=== PATIENT | female | born 1955 | race Caucasian/White ===

== ENCOUNTER → 2019-03-30 | Outpatient (CLI) | payer MEDICARE ==
--- NOTE | 2019-03-31 09:15 | USB ---
Reason for exam: additional evaluation requested from abnormal screening. History: Patient is postmenopausal. Family history of breast cancer in mother at age 80. US Breast Workup Limited RT Right limited breast ultrasound including focal area of concern, retroareolar and axilla demonstrates a 0.5 x 0.6 x 0.6cm hypoechoic lesion at 1 o'clock. These results were verbally communicated with the patient and result sheet given to the patient on 03/30/19. ASSESSMENT: Suspicious, BI-RAD 4 RECOMMENDATION: Ultrasound core biopsy of the right breast. Called office with mammographic findings and has scheduled an appointment for the patient for 05/05/19 at 10:[address] Thurman. Biopsy scheduled for 04/28/19 at 12:20. PRELIMINARY REPORT CALLED AND FAXED TO DR. THURMAN ON 03/31/19.
== END | disposition home or self-care (01) ==
LOC: RADUSWWP 14:13
PROVIDERS: ATTEND Internal Medicine
DX: R92.8 Other abnormal and inconclusive findings on diagnostic imaging of breast (principal)

== ENCOUNTER → 2019-04-28 | Day surgery (SDC) | payer MEDICARE ==
[2019-04-28 09:57] VITALS: BP 163/89; PULSE 68; RESP 16; TEMP 98
--- NOTE | 2019-04-28 11:30 | USB ---
EXAMINATION TYPE: US biopsy breast VAD RT, MG diagnostic mammo RT wo CAD DATE OF EXAM: 04/28/2019 CLINICAL HISTORY: R92.8 Abn mammo. Abnormal ultrasound. TECHNIQUE: Ultrasound guided core biopsy of right breast with clip placement and follow-up two-view mammogram. COMPARISON: Right breast ultrasound March 30, 2019 and older mammograms. FINDINGS: The procedure of ultrasound guided core biopsy was explained to the patient. Benefits, alternatives, and risks were discussed. An informed consent was then obtained. The patient was placed in supine positioning for imaging and for the procedure. Preprocedure ultrasound redemonstrates at 1:00 position a 5 x 4 mm round hypoechoic anechoic lesion without increased through transmission or vascularity in the right breast. The overlying skin was prepped and draped in usual sterile fashion. Lidocaine is used as anesthetic into the skin and subcutaneous tissue up to area of concern in the right breast. Ultrasound-guided fine-needle aspiration with 18-gauge needle is unsuccessful in obtaining any significant fluid. Lesion perhaps slightly smaller after attempted sampling. Under ultrasound guidance, a vacuum assisted biopsy gun device was used to obtain 3 core samples. Following this, a biopsy clip was left at site of remnant lesion. Lesion significantly smaller after sampling. The patient tolerated the procedure well without any immediate complication. The patient was kept in the radiology department for short stay after the procedure and then discharged home in stable condition. Postprocedure mammogram shows successful deployment of clip centrally in lesion with some persistent lesion still identified. IMPRESSION: Successful, uncomplicated ultrasound guided core biopsy of area of concern in the right breast, full pathology results to follow. Low to intermediate index of suspicion noted at time of procedure. 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 Recommendation Surgical consult of the right breast. MARIAMAD
== END ==
LOC: RADUSWWP 09:23
PROVIDERS: ATTEND Internal Medicine
DX: C50.911 Malignant neoplasm of unspecified site of right female breast (principal); R92.8 Other abnormal and inconclusive findings on diagnostic imaging of breast; Z17.0 Estrogen receptor positive status [ER+]; Z88.0 Allergy status to penicillin
CPT/HCPCS: 88305; 88342; 88341; 77065; 19083; A4648; J2001

== ENCOUNTER → 2019-06-07 | Outpatient (CLI) | payer MEDICARE ==
[2019-06-07 10:42] VITALS: BP 163/78; PULSE 73; RESP 18; TEMP 98.1
--- NOTE | 2019-06-07 11:25 | P.GSHP ---
History of Present Illness H&P Date: 06/07/19 Chief Complaint: Right breast stage IA breast cancer Maru is a 63-year-old white female who presents for breast evaluation. She underwent a bilateral screening mammogram in March 2019. This revealed a 6 mm high density circumscribed oval lesion in the upper inner quadrant of the right breast. An ultrasound was then performed which revealed a 0.6 cm lesion at 1:00. An ultrasound core biopsy was performed. The ultrasound core biopsy revealed invasive carcinoma of the breast grade 2 this was ER/VA positive and HER-2 negative. The patient did not feel anything of concern in her breasts. The patient has been taking some marijuana paced secondary to arthritis. The patient has been seen and evaluated by medical oncology and has been started on letrazole. Surgery was not immediately scheduled secondary to elective cases been held from the operating room because of the coronal virus. Family History: mother: breast cancer in 80's father: lymphoma paternal uncle: stomach cancer Hormonal History: menarche: 11 , 1 miscarriage, breast fed: no, age at first : 14 menopause: 46 BCP: 3 years hormones: letrazole now Surgical History: 1. IUD removed that had dislocated Medical History: 1. arthritis 2. HTN Social History: smoke: stopped in August, used to smoke 1 1/2 PPD for 30 years alcohol: used to drink beer frequently, now 3 times a week Drugs: She uses the marijuana pills, she does not smoke marijuana - Constitutional Comment: sweats since started letrazole Constitutional: Reports sweats - EENT Eyes: denies blurred vision, denies pain Ears: deny: decreased hearing, tinnitus Ears, nose, mouth and throat: Denies headache, Denies sore throat - Breasts Breasts: bilateral: as per HPI - Cardiovascular Cardiovascular: Reports high blood pressure - Respiratory Respiratory: Denies cough, Denies 7 - Gastrointestinal Gastrointestinal: Denies abdominal pain, Denies diarrhea, Denies nausea, Denies vomiting - Genitourinary (Female) Genitourinary: Denies dysuria, Denies hematuria - Menstruation Menstruation: Reports postmenopausal - Musculoskeletal Comment: arthritis Musculoskeletal: Reports muscle cramps - Integumentary Integumentary: Denies pruritus, Denies rash - Neurological Neurological: Denies numbness, Denies weakness - Psychiatric Psychiatric: Denies anxiety, Denies depression - Endocrine Endocrine: Reports fatigue, Denies weight change - Hematologic/Lymphatic Comment: none - Allergic/Immunologic Allergic/Immunologic: Reports as per HPI Past Medical History Past Medical History: Osteoarthritis (OA) History of Any Multi-Drug Resistant Organisms: None Reported Additional Past Surgical History / Comment(s): colonoscopy Past Anesthesia/Blood Transfusion Reactions: No Reported Reaction Past Psychological History: Anxiety Smoking Status: Former smoker Past Alcohol Use History: Daily Additional Past Alcohol Use History / Comment(s): Quit smoking August 2018. smoked 1ppd for past 40 yrs. Pt. states she drinks beer after work 4 days a week. Past Drug Use History: None Reported - Past Family History Mother Family Medical History: Cancer Additional Family Medical History / Comment(s): breast Father Family Medical History: Cancer Medications and Allergies Home Medications Medication Instructions Recorded Confirmed Type Losartan-Hctz 50-12.5 mg [Hyzaar 1 tab PO DAILY 04/11/19 04/28/19 History 50-12.5] Acetaminophen [Tylenol Arthritis] 650 mg PO DIRECTED PRN 04/28/19 04/28/19 History Allergies Allergy/AdvReac Type Severity Reaction Status Date / Time Penicillins Allergy Unknown Verified 04/28/19 09:49 Childhood Surgical - Exam Vital Signs Temp Pulse Resp BP Pulse Ox 98.1 F 73 18 163/78 98 06/07/19 10:34 06/07/19 10:34 06/07/19 10:34 06/07/19 10:34 06/07/19 10:34 BMI 43.1 - General obese - Eyes normal ocular movement - ENT no hearing loss, no congestion - Neck trachea midline, no lymphadectomy - Respiratory normal respiratory effort, clear to auscultation - Cardiovascular Rhythm: regular Heart Sounds: normal: S1, S2 - Abdomen Abdomen: soft, non tender, no guarding, no rigid, no rebound - Integumentary normal turgor - Neurologic no disoriented, no combative - Musculoskeletal normal gait - Psychiatric oriented to time, oriented to person, oriented to place, speech is normal, memory intact Breast exam: bra 44DD inspection: ptosis grade 3, no nipple retraction Palpation: Right breast: Multi-positional exam no dominant masses or nodules of concern, the cancer is not palpable Fibrocystic changes, no nipple inversion Right axilla: No adenopathy of concern Left breast: Multi-positional exam no dominant masses or nodules of concern, fibrocystic changes Left axilla: No adenopathy of concern Results Mammogram and ultrasound reviewed with radiologist Assessment and Plan Assessment: Impression: 1. Stage IA right breast cancer 2. Fibrocystic breast changes 3. Hypertension 4. Arthritis Plan: 1. Right breast needle localization excisional biopsy with possible optical plastic tissue transfer 2. Right sentinel node injection and sentinel node biopsy possible axillary node dissection 3. Patient is going to stop her marijuana pills at this time 4. Patient is going to avoid nonsteroidals at this time 5. medical clearance from Dr. Thurman CC: Dr. Thurman encouter 55 minutes, > 50% of time in planning and counselling Time with Patient: Greater than 30
== END ==
LOC: WWCWWP 10:26
PROVIDERS: ATTEND Surgery
DX: Z53.9 Procedure and treatment not carried out, unspecified reason (principal)

== ENCOUNTER 2019-06-21 09:55 | Day surgery (SDC) | payer MEDICARE ==
[2019-06-20 10:35] VITALS: BMI 40.3
[~2019-06-21 09:55] MED LIST: DEXAMETHASONE SOD PHOSPHATE 10 MG/ML 1 ML VIAL IV ONE; HEPARIN SODIUM,PORCINE 5,000 UNIT/ML 1 ML VIAL SQ ONE; HYDROmorphone 0.5 MG/0.5 ML SYRINGE IVP PRN; LACTATED RINGERS 1,000 ML IV SCH; LIDOCAINE 1% (10MG/ML) FOR IV START INTRADERMA PRN; ONDANSETRON 4 MG/2 ML VIAL IVP ONE; Pre Op ABX Message 1 EACH MISC MISCELLANE ONE; SCOPOLAMINE 1.5MG/72HR PATCH TRANSDERM ONE
[2019-06-21] MEDS ORDERED: ALPRAZolam 0.5 MG TAB PO ONE (10:42)
[2019-06-21] MEDS ORDERED: LIDOCAINE 1% INJ 10MG/ML (20 ML MDV) SQ ONE (11:20)
--- NOTE | 2019-06-21 14:01 | P.NAPBC ---
NAPBC Queries - NAPBC Queries Was patient's case review presented at [facility] tumor board? If no, comment.: Yes Was patient's pathology reviewed at [facility]? If no, comment.: Yes Was breast conservation surgery offered? If no, comment.: Yes Was sentinel node biopsy offered? If no, comment.: Yes Was diagnosis confirmed by percutaneous core biopsy? If no, comment.: Yes Is patient mastectomy patient?: No Was a preop referral to reconstructive surgeon offered?: No Clinical Stage: Stage 1A
[2019-06-21] MEDS ORDERED: GLYCOPYRROLATE 0.2 MG/ML 2 ML VIAL ONE (14:27)
[2019-06-21] MEDS ORDERED: SUCCINYLCHOLINE CHLORIDE 100 MG/5 ML SYR IV ONE (14:27)
[2019-06-21] MEDS ORDERED: MIDAZOLAM 2 MG/2 ML VIAL ONE (14:27)
[2019-06-21] MEDS ORDERED: NEOSTIGMINE 1 MG/ML 10 ML VIAL ONE (14:27)
[2019-06-21] MEDS ORDERED: LIDOCAINE 1% INJ 10MG/ML (20 ML MDV) ONE (14:27)
[2019-06-21] MEDS ORDERED: ROCURONIUM BROMIDE 10 MG/ML 5 ML VIAL IV ONE (14:27)
[2019-06-21] MEDS ORDERED: fentaNYL (PF) 50 MCG/ML 2 ML AMP ONE (14:27)
[2019-06-21] MEDS ORDERED: HYDROmorphone (PF) 1 MG/ML ONE (14:27)
[2019-06-21] MEDS ORDERED: PROPOFOL 10 MG/ML 20 ML VIAL IV ONE (14:27)
[2019-06-21] MEDS ORDERED: LACTATED RINGERS 1,000 ML IV ONE (16:15)
--- NOTE | 2019-06-21 16:20 | P.OP ---
Date of Procedure: 06/21/19 Preoperative Diagnosis: Left breast stage IA cancer Postoperative Diagnosis: Same Procedure(s) Performed: Left breast needle localization lumpectomy, sentinel node biopsy Anesthesia: NATALYA Surgeon: Nhi Rodgers Estimated Blood Loss (ml): 10 Pathology: other (left brest tissue, sentinal node) Condition: stable Disposition: same day Operative Findings: Fibrofatty breast tissue Description of Procedure: 63-year-old white female diagnosed with a right breast stage IA cancer. The patient was taken to the operating room and the right breast and axilla were prepped and draped in a sterile fashion. This was after needle localization of the area of concern in the right breast. Incision was made and carried down to the hook of the needle. Surrounding tissue was excised. The wound was evaluated to assure that hemostasis was attained. This was attained using the electrocautery device and harmonic scalpel. The specimen was painted for orientation. Radiograph of the specimen revealed the area of concern had been removed. Titanium clips were placed. Deep tissues were closed using 3-0 Vicryl suture. Skin was closed using 4-0 Monocryl. The axilla was approached. Using the neoprobe the area of greatest radioactivity was identified. An incision was made and carried into the axillary tissue. Using the neoprobe a radioactive lymph node was identified. This was excised using the Harmonic scalpel. Several larger vessels feeding into the area were clamped and ligated. The count on the lymph node at 10 seconds was 35,000, and the background count was 75. The deep tissues were evaluated for hemastatis and assured this was attained. No evidence of bleeding was identified. Vicryl sutures were placed deep. The skin was closed using 4-0 Monocryl. Patient tolerated the procedure in stable condition. Specimen was sent for permanent section. All instrument and sponge counts were correct at the end of the case.
--- NOTE | 2019-06-21 16:22 | P.DS ---
Providers Attending physician: Nhi Rodgers Primary care physician: Krystal Thurman Plan - Discharge Summary Discharge Rx Participant: Yes New Discharge Prescriptions: No Action Letrozole [Femara] 2.5 mg PO DAILY amLODIPine [Norvasc] 10 mg PO DAILY Ca-Mag-Zinc 1 tab PO TID LORazepam [Ativan] 0.5 mg PO HS PRN PRN Reason: Anxiety Discharge Medication List Ca-Mag-Zinc 1 tab PO TID 06/20/19 [History] LORazepam [Ativan] 0.5 mg PO HS PRN 06/20/19 [History] Letrozole [Femara] 2.5 mg PO DAILY 06/20/19 [History] amLODIPine [Norvasc] 10 mg PO DAILY 06/20/19 [History] Follow up Appointment(s)/Referral(s): Nhi Rodgers MD [STAFF PHYSICIAN] - 1 Week Activity/Diet/Wound Care/Special Instructions: may shower after [address] if taking narcotic pain medication do not drive for at least 24 hours wear bra at all times except when showering Discharge Disposition: HOME SELF-CARE
[2019-06-21 16:35] VITALS: TEMP 98.8
[2019-06-21 16:48] VITALS: RESP 16
[2019-06-21 17:44] VITALS: BP 136/62; PULSE 63
--- NOTE | 2019-06-22 16:14 | NM ---
EXAMINATION TYPE: NM sentinel node injection DATE OF EXAM: 06/22/2019 COMPARISON: NONE HISTORY: Right-sided breast cancer. TECHNIQUE AND FINDINGS: The procedure of sentinel lymph node injection was explained to the patient. The benefits, alternatives, and risks were discussed. An informed consent was then obtained. Overlying skin is cleaned with sterile alcohol. Following this, 425 uCi Tc99m Tilmanocept was inject ed in the upper outer aspect of the right nipple intradermally. The patient tolerated the procedure well without any immediate complication. The patient was kept in the radiology department for short stay after the procedure and then taken to surgery for surgical p rocedure what is presumed intraoperative gamma probe will be used for sentinel lymph node detection. IMPRESSION: Right breast radiotracer injection for sentinel node localization as above.
--- NOTE | 2019-06-22 16:21 | MM ---
EXAMINATION TYPE: MG pre op needle loc RT, MG surgical specimen RT DATE OF EXAM: 06/22/2019 COMPARISON: Prior mammogram and ultrasound April 28, 2019. CLINICAL HISTORY: Right-sided breast cancer. TECHNIQUE: Needle localization with wire placement and surgical excision of area of concern in the right breast. FINDINGS: The procedure of needle localization with wire placement and than surgical excision was explained to the patient. Benefits, alternatives, and risks were discussed. An informed consent was then obtained. The shortest pathway for procedure was chosen. Shortest pathway was medial approach. The overlying skin was prepped and draped in usual sterile fashion. Lidocaine buffered with bicarbonate was used as anesthetic into the skin and subcutaneous tissue up to the level of area of concern. A 5 cm needle was used. It was placed via a medial approach under mammographic guidance. Subsequent 90 degrees mammogram show the needle to be in satisfactory position relative to the targeted area. At this point, wire was placed and the needle was withdrawn. The wire was fixed to patient's skin. Images were marked for surgeon. The patient tolerated the procedure well without any immediate complication. The patient was kept in the radiology department for short stay after the procedure and then taken to surgery for surgical excision. Targeted biopsy clip and wire are identified in specimen mammogram. The patient was kept in hospital for short stay after the procedure and then discharged home in stable condition. IMPRESSION: Successful, uncomplicated needle localization with wire placement and surgical excision of targeted biopsy clip in the right breast, full pathology results to follow. Pathology Results: Malignant A. RIGHT BREAST, LUMPECTOMY: Invasive well differentiated ductal carcinoma (Grade 1), margins negative. See Surgical Pathology Cancer Case Summary. B. SENTINEL LYMPH NODE, BIOPSY: Lymph node negative for metastasis. CK7 and DIEGO immunoperoxidase stains are confirmatory (controls appropriate). C. AXILLARY TISSUE: Two lymph nodes negative for metastasis. Recommendation Appropriate oncologic management. MTDD
--- NOTE | 2019-06-28 12:36 | CDI ---
The lesion was actually on the right breast, and it was an error in the body of the operative report. The lesion was in the right breast and the operation was on the right breast. Outpatient Documentation Clarification Form Date: 06/28/19 CDS/Customer Quality Specialist Name: Maris Horta Phone: If any questions, call Maru Allen Manager Media Relations at [phone] Patient Name: Angy Burger Admit Date: 06/21/19 Discharge Date: ATTENTION: The [facility] Coding Staff appreciate your assistance in clarifying documentation. Please respond to the clarification below the line at the bottom and electronically sign. The [facility] Coding staff will review the response and follow-up if needed. Please note: Queries are made part of the Legal Health Record. If you have any questions, please contact the Manager Media Relations. Dear Dr. Rodgers Please provide clarification on the laterality of the procedure performed. On the Operative note under Pre-operative diagnosis and Procedure Performed it is documented that the diagnosis is of the left breast and the procedure was performed on the left breast. Also on the procedure note under Description of Procedure and in the first paragraph and on the pathology report it is documented to be the right breast. Please clarify. Thank you for your kind consideration MTDD
== END 2019-06-21 17:59 | disposition home or self-care (01) ==
LOC: OR 09:55
PROVIDERS: ATTEND Surgery
DX: C50.911 Malignant neoplasm of unspecified site of right female breast (principal); N60.11 Diffuse cystic mastopathy of right breast; I10 Essential (primary) hypertension; M19.90 Unspecified osteoarthritis, unspecified site; Z80.3 Family history of malignant neoplasm of breast; Z80.7 Family history of other malignant neoplasms of lymphoid, hematopoietic and related tissues; Z80.0 Family history of malignant neoplasm of digestive organs; Z98.890 Other specified postprocedural states; Z87.891 Personal history of nicotine dependence; Z79.899 Other long term (current) drug therapy; Z88.0 Allergy status to penicillin
CPT/HCPCS: 19301; 88342; 88307; 88341; 76098; 38792; A9520; J2250; J1644; J1100; J2710; J2405; J2001; J3010; J1170; J0330; J2704; 93005

== ENCOUNTER → 2019-06-30 | Outpatient (CLI) | payer MEDICARE ==
[2019-06-30 16:33] VITALS: BP 170/93; PULSE 78; RESP 20; TEMP 98.2
--- NOTE | 2019-06-30 16:35 | P.PN ---
Progress Note - Text Progress Note Date: 06/30/19 Stage IA T1 N0 M0 ER/WA + HER-2Neu-G1/2 Maru is a 63-year-old white female status post [place] [id number]. Pathology revealed sentinel nodes to be negative, and margins to all be negative. The residual tumor was only 4 mm in size. The patient has no complaints following the procedure. Physical exam: Lungs: Clear Heart: Regular rate and rhythm Incision: Clean and dry breast and axilla She did have some reaction to the tape but otherwise everything is healing well Impression: 1. Patient status [place] [id number] doing well Plan: 1. Follow-up medical oncology 2. Follow-up radiation oncology 3. Follow-up primary care doctor 4. Follow-up in 3 months time CC: Dr. Thurman
== END | disposition home or self-care (01) ==
LOC: WWCWWP 16:19
PROVIDERS: ATTEND Surgery
DX: Z53.9 Procedure and treatment not carried out, unspecified reason (principal)

== ENCOUNTER → 2019-09-30 | Outpatient (CLI) | payer MEDICARE ==
[2019-09-30 14:57] VITALS: BP 170/88; PULSE 66; RESP 18; TEMP 98.2
--- NOTE | 2019-09-30 15:13 | P.PN ---
Subjective Progress Note Date: 09/30/19 Principal diagnosis: stage IA right breast cancer Angy is a 64 year old white female status post lumpectomy and sentinel node biopsy on . Lymph nodes were negative and margins were clear. This was a T1 1 N0 M0. ER/OH positive HER-2/rafael negative lesion. She underwent radiation therapy and has completed this. Additionally she saw Dr. Foster from medical oncology and is presently on Letrazole. She has no complaints related to lungs masses or nodules in her breast at the present time. Family history: Mother: Breast cancer in her 80s Father: Lymphoma Paternal uncle: Stomach cancer Hormonal history: Menarche: 11 , one miscarriage, press-fit: No, age of first : 14 Menopause: 46 control pills: 2 years Hormones: M is all now Surgical history: 1. IUD removed and had dislocated 2. Lumpectomy and sentinel node biopsy right breast Medical history: 1. Arthritis 2. Hypertension Social history: Smoke: Stopped in August 2018; used to smoke 1 1/2 PPD for 40 years alcohol: 3-4 beers/ twice a week drugs: none Review of systems: Constitutional: Night sweats and she started to let resolved HEENT: Negative Breasts: As per HPI Cardiovascular: Hypertension Respiratory: Negative GI: Negative : Negative Menstruation: Postmenopausal Musculoskeletal: Arthritis Integument: Negative Neurologic: Negative Psychiatric: Negative Endocrine: Negative ALLERGIES: Negative Objective - Vital Signs Vital signs: Vital Signs Temp 98.2 F 09/30/19 14:52 Pulse 66 09/30/19 14:52 Resp 18 09/30/19 14:52 BP 170/88 09/30/19 14:52 Pulse Ox 99 09/30/19 14:52 Intake & Output 09/29/19 09/30/19 09/30/19 18:59 06:59 18:59 Weight 124.738 kg - Exam BMI 44.4 - Constitutional General appearance: Present: obese - EENT Eyes: Present: EOMI ENT: Present: hearing grossly normal - Neck Neck: Present: normal ROM - Respiratory Respiratory: bilateral: CTA - Cardiovascular Rhythm: regular Heart sounds: normal: S1, S2 - Gastrointestinal General gastrointestinal: Present: normal bowel sounds, soft - Integumentary Integumentary: Present: normal turgor - Musculoskeletal Musculoskeletal: Present: gait normal - Psychiatric Psychiatric: Present: A&O x's 3, appropriate affect, intact judgment & insight - Additional findings Additional findings: breast exam: BRA 44DD inspection: bilateral grade 3 ptosis palpation: right breast: multipositional exam fibrocystic changes, radiation skin thickening with some peeling of the skin at this time, a fungal infection under the breast Right axilla: No adenopathy of concern Left breast: Multi-positional exam fibrocystic changes, no dominant masses or nodules of concern Left axilla: No adenopathy of concern Assessment and Plan Assessment: Jennyin: 1. Patient status post right breast lumpectomy and sentinel node biopsy/presently on the left resolve completed radiation therapy did not have chemotherapy No evidence of recurrent cancer 2. Radiation monroy right breast resolving just finished therapy approximately 4 weeks ago 3. Fibrocystic breast changes left breast Plan: 1. Bilateral mammogram in 6 months 2. Nystatin underwent right breast 3. Patient to follow. 3 months for physician exam CC: DR. Thurman encounter 20 minutes, > 50% of time in planning and counselling
== END | disposition home or self-care (01) ==
LOC: WWCWWP 14:27
PROVIDERS: ATTEND Surgery
DX: C50.911 Malignant neoplasm of unspecified site of right female breast (principal)
CPT/HCPCS: 99213

== ENCOUNTER 2019-10-07 16:41 | Emergency (ER) | payer MEDICARE ==
[2019-10-07 16:59] VITALS: RESP 18
--- NOTE | 2019-10-07 17:44 | US ---
EXAMINATION TYPE: US venous doppler duplex LE LT DATE OF EXAM: 10/07/2019 5:10 PM COMPARISON: NONE CLINICAL HISTORY: swelling, pain. Left leg pain and swelling SIDE PERFORMED: Left TECHNIQUE: The lower extremity deep venous system is examined utilizing real time linear array sonog heydi with graded compression, doppler sonography and color-flow sonography. VESSELS IMAGED: External Iliac Vein (EIV) Common Femoral Vein Deep Femoral Vein Greater Saphenous Vein * Femoral Vein Popliteal Vein Small Saphenous Vein * Proximal Calf Veins (* superficial vessels) Left Leg: Appears negative for DVT IMPRESSION: 1. Left lower extremity ultrasound negative for deep venous thrombosis to the level of intolerance.
[2019-10-07 18:01] LABS: Basophils % (A) 1 %; Eosinophils # (A) 0.2 k/uL (0-0.7); Eosinophils % (A) 4 %; HGB 13.1 gm/dL (11.4-16.0); Lymphocytes # (A) 1.3 k/uL (1.0-4.8); Lymphocytes % (A) 23 %; MCH 31.6 pg (25.0-35.0); MCHC 32.7 g/dL (31.0-37.0); MCV 96.6 fL (80.0-100.0); Mean Platelet Volume 7.7; Monocytes # (A) 0.3 k/uL (0-1.0); Monocytes % (A) 5 %; Neutrophils # (A) 3.5 k/uL (1.3-7.7); Neutrophils % (A) 64 %; Platelet Count 195 k/uL (150-450); RBC 4.14 m/uL (3.80-5.40); RDW 12.8 % (11.5-15.5); WBC 5.4 k/uL (3.8-10.6)
[2019-10-07 18:09] LABS: INR 0.9 (<1.2); Prothrombin Time 9.8 sec (9.0-12.0)
[2019-10-07 18:13] LABS: ALT 18 U/L (4-34); AST 30 U/L (14-36); African American GFR (CKD) >90 (>60 ml/min/1.73 sqM); Albumin 4.4 g/dL (3.5-5.0); Alkaline Phosphatase 86 U/L (38-126); Anion Gap 7 mmol/L; Blood Urea Nitrogen 21 mg/dL (7-17); C Reactive Protein <5.0 mg/L (<10.0); Calcium 9.8 mg/dL (8.4-10.2); Carbon Dioxide 23 mmol/L (22-30); Chloride 106 mmol/L (98-107); Glucose 92 mg/dL (74-99); Non-African American GFR(CKD) 81 (>60 ml/min/1.73 sqM); Potassium 4.5 mmol/L (3.5-5.1); Sodium 136 mmol/L (137-145); Total Bilirubin 0.6 mg/dL (0.2-1.3); Total Protein 7.4 g/dL (6.3-8.2)
[2019-10-07] MEDS ORDERED: CEPHALEXIN 500MG STARTER PACK 4 CAP BTL PO STA (18:43)
[2019-10-07] MEDS ORDERED: CEPHALEXIN 500 MG CAP PO STA (18:43)
--- NOTE | 2019-10-07 18:46 | ED ---
Extremity Problem HPI - General Chief complaint: Extremity Problem,Nontraumatic Stated complaint: lt leg swelling Time Seen by Provider: 10/07/19 16:55 Source: patient Mode of arrival: ambulatory Limitations: no limitations - History of Present Illness Initial comments: Patient is a 64-year-old female with past medical history of breast cancer, in remission presents emergency room with reported left leg swelling. Patient states she does have some component of peripheral edema at baseline however swelling in the left ankle has been worse over the past day. She also admits to muscle cramp. Patient is on Femara for her previous history of breast cancer. Denies history of DVT or PE. No ST or shortness of breath. Denies any fevers or chills. No history of CHF. Patient not currently on any diuretics. No other alleviating, precipitating or modifying factors - Related Data Home Medications Medication Instructions Recorded Confirmed Letrozole [Femara] 2.5 mg PO DAILY 06/20/19 10/07/19 amLODIPine [Norvasc] 10 mg PO DAILY 06/20/19 10/07/19 Naproxen 500 mg PO BID PRN 09/30/19 10/07/19 Ibuprofen 600 mg PO Q8H PRN 10/07/19 10/07/19 tiZANidine HCL 4 mg PO TID PRN 10/07/19 10/07/19 Previous Rx's Medication Instructions Recorded Cephalexin [Keflex] 500 mg PO Q6HR #20 cap 10/07/19 traMADol HCl [Ultram] 50 mg PO Q6H PRN #12 tab 10/07/19 Allergies Allergy/AdvReac Type Severity Reaction Status Date / Time Penicillins Allergy Unknown Verified 10/07/19 18:06 Childhood Review of Systems ROS Statement: Those systems with pertinent positive or pertinent negative responses have been documented in the HPI. ROS Other: All systems not noted in ROS Statement are negative. Past Medical History Past Medical History: Osteoarthritis (OA) Additional Past Medical History / Comment(s): HEART MURMUR, RIGHT BREAST CANCER History of Any Multi-Drug Resistant Organisms: None Reported Past Surgical History: Breast Surgery, Orthopedic Surgery Additional Past Surgical History / Comment(s): colonoscopy, right breast lumpectomy Past Anesthesia/Blood Transfusion Reactions: No Reported Reaction Past Psychological History: Anxiety Smoking Status: Former smoker Past Alcohol Use History: Occasional Past Drug Use History: None Reported - Past Family History Mother Family Medical History: Cancer Additional Family Medical History / Comment(s): breast cancer Father Family Medical History: Cancer Additional Family Medical History / Comment(s): lymphoma General Exam Limitations: no limitations General appearance: alert, in no apparent distress Respiratory exam: Present: normal lung sounds bilaterally. Absent: respiratory distress, wheezes, rales, rhonchi, stridor Cardiovascular Exam: Present: regular rate, normal rhythm, normal heart sounds. Absent: systolic murmur, diastolic murmur, rubs, gallop, clicks GI/Abdominal exam: Present: soft, normal bowel sounds. Absent: distended, tenderness, guarding, rebound, rigid Extremities exam: Present: tenderness, pedal edema, calf tenderness (left ), other (left calf is warm, mildly erythematous with brawny edema. Enlarged in comparasion to the right ) Neurological exam: Present: alert, oriented X3, CN II-XII intact Psychiatric exam: Present: normal affect, normal mood Course Vital Signs 10/07/19 10/07/19 16:56 19:15 Temperature 98.5 F 98.2 F Pulse Rate 72 76 Respiratory 18 18 Rate Blood Pressure 188/77 170/70 O2 Sat by Pulse 100 98 Oximetry Medical Decision Making - Medical Decision Making Upon arrival the patient is placed into room 8. A thorough history and physical physical exam is performed. Laboratory studies are conducted. CRP negative. White count normal at 5.4. Ultrasound was completed of the left lower trauma in which demonstrates no acute DVT. I discussed diagnosis, differential and treatment options. I recommended she be discharged home and follow-up with Dr. Thurman on Thursday. I will place her on an antibiotic for possible cellulitis. She may need a repeat ultrasound if her swelling and pain persists. The patient understood this. If she has any new or worsening symptoms return to the emergency room. Patient was discharged home in stable condition - Lab Data Result diagrams: 10/07/19 17:51 10/07/19 17:51 Lab Results 10/07/19 10/07/19 10/07/19 Range/Units 17:51 17:51 17:51 WBC 5.4 (3.8-10.6) k/uL RBC 4.14 (3.80-5.40) m/uL Hgb 13.1 (11.4-16.0) gm/dL Hct 40.0 (34.0-46.0) % MCV 96.6 (80.0-100.0) fL MCH 31.6 (25.0-35.0) pg MCHC 32.7 (31.0-37.0) g/dL RDW 12.8 (11.5-15.5) % Plt Count 195 (150-450) k/uL Neutrophils % 64 % Lymphocytes % 23 % Monocytes % 5 % Eosinophils % 4 % Basophils % 1 % Neutrophils # 3.5 (1.3-7.7) k/uL Lymphocytes # 1.3 (1.0-4.8) k/uL Monocytes # 0.3 (0-1.0) k/uL Eosinophils # 0.2 (0-0.7) k/uL Basophils # 0.0 (0-0.2) k/uL PT 9.8 (9.0-12.0) sec INR 0.9 (<1.2) APTT 22.0 (22.0-30.0) sec Sodium 136 L (137-145) mmol/L Potassium 4.5 (3.5-5.1) mmol/L Chloride 106 (98-107) mmol/L Carbon Dioxide 23 (22-30) mmol/L Anion Gap 7 mmol/L BUN 21 H (7-17) mg/dL Creatinine 0.77 (0.52-1.04) mg/dL Est GFR (CKD-EPI)AfAm >90 (>60 ml/min/1.73 sqM) Est GFR (CKD-EPI)NonAf 81 (>60 ml/min/1.73 sqM) Glucose 92 (74-99) mg/dL Plasma Lactic Acid Ender (0.7-2.0) mmol/L Calcium 9.8 (8.4-10.2) mg/dL Total Bilirubin 0.6 (0.2-1.3) mg/dL AST 30 (14-36) U/L ALT 18 (4-34) U/L Alkaline Phosphatase 86 (38-126) U/L C-Reactive Protein <5.0 (<10.0) mg/L Total Protein 7.4 (6.3-8.2) g/dL Albumin 4.4 (3.5-5.0) g/dL 08/28/20 Range/Units 17:51 WBC (3.8-10.6) k/uL RBC (3.80-5.40) m/uL Hgb (11.4-16.0) gm/dL Hct (34.0-46.0) % MCV (80.0-100.0) fL MCH (25.0-35.0) pg MCHC (31.0-37.0) g/dL RDW (11.5-15.5) % Plt Count (150-450) k/uL Neutrophils % % Lymphocytes % % Monocytes % % Eosinophils % % Basophils % % Neutrophils # (1.3-7.7) k/uL Lymphocytes # (1.0-4.8) k/uL Monocytes # (0-1.0) k/uL Eosinophils # (0-0.7) k/uL Basophils # (0-0.2) k/uL PT (9.0-12.0) sec INR (<1.2) APTT (22.0-30.0) sec Sodium (137-145) mmol/L Potassium (3.5-5.1) mmol/L Chloride (98-107) mmol/L Carbon Dioxide (22-30) mmol/L Anion Gap mmol/L BUN (7-17) mg/dL Creatinine (0.52-1.04) mg/dL Est GFR (CKD-EPI)AfAm (>60 ml/min/1.73 sqM) Est GFR (CKD-EPI)NonAf (>60 ml/min/1.73 sqM) Glucose (74-99) mg/dL Plasma Lactic Acid Ender 1.0 (0.7-2.0) mmol/L Calcium (8.4-10.2) mg/dL Total Bilirubin (0.2-1.3) mg/dL AST (14-36) U/L ALT (4-34) U/L Alkaline Phosphatase (38-126) U/L C-Reactive Protein (<10.0) mg/L Total Protein (6.3-8.2) g/dL Albumin (3.5-5.0) g/dL Disposition Clinical Impression: Cellulitis, Left leg swelling Disposition: HOME SELF-CARE Condition: Stable Instructions (If sedation given, give patient instructions): Leg Edema (ED) Additional Instructions: Take the antibiotic as directed. Follow up with Dr. Thurman on Thursday in regards to your symptoms. Return to the emergency room for any new or worsening symptoms Prescriptions: Cephalexin [Keflex] 500 mg PO Q6HR #20 cap traMADol HCl [Ultram] 50 mg PO Q6H PRN #12 tab PRN Reason: Pain Is patient prescribed a controlled substance at d/c from ED?: No Referrals: Krystal Thurman MD [Primary Care Provider] - 1-2 days Time of Disposition: 18:44
[2019-10-07 19:17] VITALS: BP 170/70; PULSE 76; TEMP 98.2
== END 2019-10-07 19:15 | disposition home or self-care (01) ==
LOC: EC 16:41
DX: L03.116 Cellulitis of left lower limb (principal); Z79.811 Long term (current) use of aromatase inhibitors; Z79.899 Other long term (current) drug therapy; Z88.0 Allergy status to penicillin; Z85.3 Personal history of malignant neoplasm of breast; Z87.891 Personal history of nicotine dependence
CPT/HCPCS: 36415; 80053; 83605; 85025; 85610; 85730; 86140; 99284

== ENCOUNTER → 2019-10-13 | Outpatient (CLI) | payer MEDICARE ==
--- NOTE | 2019-10-13 16:06 | US ---
EXAMINATION TYPE: US venous doppler duplex LE LT DATE OF EXAM: 10/13/2019 2:11 PM COMPARISON: 10/07/2019 CLINICAL HISTORY: 64-year-old female M79.605 Pain in left leg. Increase in pain and since previous ul trasound 5 days ago SIDE PERFORMED: Left TECHNIQUE: The lower extremity deep venous system is examined utilizing real time linear array sonog heydi with graded compression, doppler sonography and color-flow sonography. FINDINGS: VESSELS IMAGED: External Iliac Vein (EIV) Common Femoral Vein Deep Femoral Vein Greater Saphenous Vein * Femoral Vein Popliteal Vein Small Saphenous Vein * Proximal Calf Veins (* superficial vessels) Compression images not done on mid and distal femoral vein due to patient unable to tolerate probe pressure Left Leg: Appears negative for DVT IMPRESSION: The patient was unable to tolerate transducer pressure at the mid and lower femoral vein so compressi on images were not obtained here. No visualized DVT in the left lower extremity imaged from the groin to the upper calf.
== END | disposition home or self-care (01) ==
LOC: RADUSWWP 13:43
PROVIDERS: ATTEND Internal Medicine
DX: M79.605 Pain in left leg (principal)

== ENCOUNTER → 2019-10-19 | Outpatient (CLI) | payer MEDICARE ==
--- NOTE | 2019-10-19 12:30 | XR ---
EXAMINATION TYPE: XR knee limited RT DATE OF EXAM: 10/19/2019 COMPARISON: NONE HISTORY: 64 year-old female right knee pain and stiffness TECHNIQUE: 2 views FINDINGS: Small knee joint effusion. Degenerative spurring in the 3 compartments of the knee. Moderate joint sp valerie narrowing in the medial compartment. Extensor mechanism appears intact. No acute fracture, sublux ation, or dislocation seen. IMPRESSION: Tricompartmental osteoarthrosis, moderate in the medial compartment. Small knee joint effusion is non specific. No acute osseous abnormality seen.
== END | disposition home or self-care (01) ==
LOC: RADXRYALE 10:46
PROVIDERS: ATTEND Internal Medicine
DX: M17.11 Unilateral primary osteoarthritis, right knee (principal)

== ENCOUNTER → 2020-01-13 | Outpatient (CLI) | payer MEDICARE ==
[2020-01-13 14:53] VITALS: BP 207/97; PULSE 65; RESP 18; TEMP 97.5
--- NOTE | 2020-01-13 15:18 | P.PN ---
Subjective Progress Note Date: 01/13/20 Principal diagnosis: stage IA right breast cancer stage IA right breast cancer Angy is a 64 year old white female status post lumpectomy and sentinel node biopsy on . Lymph nodes were negative and margins were clear. This was a T1 1 N0 M0. ER/CT positive HER-2/rafael negative lesion. She underwent radiation therapy. Additionally she saw Dr. Foster from medical oncology and was started on Letrazole. She has no complaints related to lumps, masses or nodules in her breast at the present time. She stopped the hormone jarad secondary to pain in her legs. She has not talked to DR. Foster. Family history: Mother: Breast cancer in her 80s Father: Lymphoma Paternal uncle: Stomach cancer Hormonal history: Menarche: 11 , one miscarriage, press-fit: No, age of first : 14 Menopause: 46 control pills: 2 years Hormones: M is all now Surgical history: 1. IUD removed and had dislocated 2. Lumpectomy and sentinel node biopsy right breast Medical history: 1. Arthritis 2. Hypertension Social history: Smoke: Stopped in August 2018; used to smoke 1 1/2 PPD for 40 years alcohol: 3-4 beers/ twice a week drugs: none Review of systems: Constitutional: Night sweats and she started to let resolved HEENT: Negative Breasts: As per HPI Cardiovascular: Hypertension Respiratory: Negative GI: Negative : Negative Menstruation: Postmenopausal Musculoskeletal: Arthritis Integument: Negative Neurologic: Negative Psychiatric: Negative Endocrine: Negative ALLERGIES: Negative Objective - Vital Signs Vital signs: Vital Signs Temp 97.5 F L 01/13/20 14:49 Pulse 65 01/13/20 14:49 Resp 18 01/13/20 14:49 BP 207/97 01/13/20 14:49 Pulse Ox 98 01/13/20 14:49 Intake & Output 01/12/20 01/13/20 01/13/20 18:59 06:59 18:59 Weight 127.006 kg - Exam BMI 45.2 - Constitutional General appearance: Present: obese - EENT Eyes: Present: EOMI ENT: Present: hearing grossly normal - Neck Neck: Present: normal ROM - Respiratory Respiratory: bilateral: CTA - Cardiovascular Rhythm: regular Heart sounds: normal: S1, S2 - Gastrointestinal General gastrointestinal: Present: normal bowel sounds, soft - Integumentary Integumentary: Present: normal turgor - Musculoskeletal Musculoskeletal Comment(s): difficulty with ambulation secondary to pain - Psychiatric Psychiatric: Present: A&O x's 3, appropriate affect, intact judgment & insight - Additional findings Additional findings: Breast exam: BRA: 44DD inspection grade 3 ptosis bilateral, radiation changes right breast palpation: right breast: Postop and radiation changes, fibrocystic changes, multiple positional exam no dominant masses or nodules of concern Right axilla: No adenopathy of concern Left breast: Multiple positional exam no dominant masses or nodules of concern fibrocystic changes Left axilla: No adenopathy of concern Assessment and Plan Assessment: Impression: 1. Patient status post right breast lumpectomy for stage IA invasive ductal carcinoma no evidence of recurrent cancer 2. Patient was on Letrazole but developed leg pain and stopped at this 3. Patient uses a cane for ambulation 4. Arthritis 5. Hypertension Plan: 1. Patient is a bilateral mammogram in March 2020 with appointment at that time 2. Patient will discuss stopping the letrazole with Dr. Foster 3. Patient to call if any questions or concerns Cc: Dr. Thurman encounter 15 minutes, > 50% of time on planning and counselling
== END | disposition home or self-care (01) ==
LOC: WWCWWP 14:32
PROVIDERS: ATTEND Surgery
DX: Z53.9 Procedure and treatment not carried out, unspecified reason (principal)

== ENCOUNTER → 2020-03-27 | Outpatient (CLI) | payer MEDICARE ==
--- NOTE | 2020-03-27 11:46 | MM ---
Reason for exam: additional evaluation requested from prior study. Last mammogram was performed 11 months ago. History: Patient is postmenopausal and has history of breast cancer at age 63. Family history of breast cancer in mother at age 80. Malignant MG pre op needle loc RT of the right breast, June 22, 2019. Lumpectomy of the right breast, June 22, 2019. Malignant US biopsy breast VAD RT of the right breast, April 28, 2019. Physical Findings: Nurse did not find any significant physical abnormalities on exam. MG 3D Diag Mammo W/Cad PRABHAKAR Bilateral CC and MLO view(s) were taken. Prior study comparison: April 28, 2019, right breast MG diagnostic mammo RT wo CAD. March 17, 2019, bilateral MG 3d screening mammo w/cad. Right breast post surgical changes. Right breast post radiation changes. No significant new findings when compared with previous films. These results were verbally communicated with the patient and result sheet given to the patient on 03/27/20. ASSESSMENT: Benign, BI-RAD 2 RECOMMENDATION: Follow-up diagnostic mammogram of both breasts in 1 year.
== END | disposition home or self-care (01) ==
LOC: RADMAMWWP 10:54
PROVIDERS: ATTEND Surgery
DX: Z08 Encounter for follow-up examination after completed treatment for malignant neoplasm (principal); Z85.3 Personal history of malignant neoplasm of breast
CPT/HCPCS: 77066; G0279; 77062

== ENCOUNTER → 2021-04-01 | Outpatient (CLI) | payer MEDICARE ==
--- NOTE | 2021-04-02 08:19 | MM ---
Reason for exam: additional evaluation requested from prior study. Last mammogram was performed 1 year ago. History: Patient is postmenopausal and has history of breast cancer at age 63. Family history of breast cancer in mother at age 80. Malignant MG pre op needle loc RT of the right breast, June 22, 2019. Lumpectomy of the right breast, June 22, 2019. Malignant US biopsy breast VAD RT of the right breast, April 28, 2019. Took antineoplastic for 2 months beginning at age 63. Physical Findings: Nurse did not find any significant physical abnormalities on exam. MG 3D Diag Mammo W/Cad PRABHAKAR Bilateral CC and MLO view(s) were taken. Prior study comparison: March 27, 2020, bilateral MG 3d diag mammo w/cad PRABHAKAR. April 28, 2019, right breast MG diagnostic mammo RT wo CAD. There are scattered fibroglandular densities. Finding: There are stable, fine, grouped/clustered calcifications in the lower inner quadrant, middle position of the left breast. Post surgical changes in the right breast. No significant changes in finding since March 27, 2020 and April 28, 2019. These results were verbally communicated with the patient and result sheet given to the patient on 04/01/21. ASSESSMENT: Benign, BI-RAD 2 RECOMMENDATION: Follow-up diagnostic mammogram of both breasts in 1 year.
== END | disposition home or self-care (01) ==
LOC: RADMAMWWP 14:49
PROVIDERS: ATTEND Surgery
DX: Z08 Encounter for follow-up examination after completed treatment for malignant neoplasm (principal); Z85.3 Personal history of malignant neoplasm of breast
CPT/HCPCS: 77066; G0279; 77062

== ENCOUNTER → 2021-04-05 | Outpatient (CLI) | payer MEDICARE ==
[2021-04-05 11:24] VITALS: BP 174/79; PULSE 66; RESP 18; TEMP 98.1
--- NOTE | 2021-04-05 12:09 | P.PN ---
Subjective Progress Note Date: 04/05/21 Principal diagnosis: stage IA right breast cancer stage IA right breast cancer Angy is a 65 year old white female status post lumpectomy and sentinel node biopsy on . Lymph nodes were negative and margins were clear. This was a T1 N0 M0. ER/[place] positive HER-2/rafael negative lesion. She underwent radiation therapy. Additionally she saw Dr. Foster from medical oncology and was started on Letrazole. She has no complaints related to lumps, masses or nodules in her breast at the present time. She stopped the hormone jarad secondary to pain in her legs. She has not talked to DR. Foster. She had a bilateral mammogram on 04-01-21 which was benign BIRAD 2. Family history: Mother: Breast cancer in her 80s Father: Lymphoma Paternal uncle: Stomach cancer patient: right breast cancer Hormonal history: Menarche: 11 , one miscarriage, press-fit: No, age of first : 14 Menopause: 46 control pills: 2 years Hormones: M is all now Surgical history: 1. IUD removed and had dislocated 2. Lumpectomy and sentinel node biopsy right breast Medical history: 1. Arthritis 2. Hypertension Social history: Smoke: Stopped in August 2018; used to smoke 1 1/2 PPD for 40 years alcohol: 3-4 beers/ twice a week drugs: none Review of systems: Constitutional: Night sweats are resolving HEENT: Negative Breasts: As per HPI Cardiovascular: Hypertension Respiratory: Negative GI: Negative : Negative Menstruation: Postmenopausal Musculoskeletal: Arthritis Integument: Negative Neurologic: Negative Psychiatric: Negative Endocrine: Negative ALLERGIES: Negative Objective - Vital Signs Vital signs: Vital Signs Temp 98.1 F 04/05/21 11:22 Pulse 66 04/05/21 11:22 Resp 18 04/05/21 11:22 BP 174/79 04/05/21 11:22 Pulse Ox 97 04/05/21 11:22 Intake & Output 04/04/21 04/05/21 04/05/21 18:59 06:59 18:59 Weight 124.738 kg - Exam BMI 44.4 - Constitutional General appearance: Present: cooperative - EENT Eyes: Present: EOMI ENT: Present: hearing grossly normal - Neck Neck: Present: normal ROM - Respiratory Respiratory: bilateral: CTA - Cardiovascular Rhythm: regular Heart sounds: normal: S1, S2 - Gastrointestinal General gastrointestinal: Present: soft - Integumentary Integumentary: Present: normal turgor - Musculoskeletal Musculoskeletal: Present: gait normal - Psychiatric Psychiatric: Present: A&O x's 3, appropriate affect, intact judgment & insight - Additional findings Additional findings: Breast Exam: BRA: 44DD inspection: bilateral grade 3 ptosis; radiation changes and surgical changes right breast palpation: Right breast: Radiation and postsurgical changes, multiple positional exam no dominant masses or nodules of concern Right axilla: No adenopathy of concern Left breast: Multi-positional exam fibrocystic changes no dominant masses or nodules of concern Left axilla: No adenopathy of concern Assessment and Plan Assessment: Impression: Patient status post lumpectomy and radiation therapy stage I a right breast invasive ductal carcinoma 2020 no evidence of recurrence Patient has declined hormone therapy she became very symptomatic on this Plan: Follow-up 6 months for physician exam Continue follow-up with radiation and medical oncology Cc: Dr. Thurman
== END | disposition home or self-care (01) ==
LOC: WWCWWP 10:31
PROVIDERS: ATTEND Surgery
DX: Z53.9 Procedure and treatment not carried out, unspecified reason (principal)

== ENCOUNTER → 2021-11-01 | Outpatient (CLI) | payer MEDICARE ==
[2021-11-01 14:49] VITALS: BP 148/70; PULSE 68; RESP 13; TEMP 98.2
--- NOTE | 2021-11-01 16:01 | P.PN ---
Subjective Progress Note Date: 11/01/21 Principal diagnosis: stage IA right breast cancer stage IA right breast cancer Angy is a 66 year old white female status post lumpectomy and sentinel node biopsy on . Lymph nodes were negative and margins were clear. This was a T1 N0 M0. ER/CT positive HER-2/rafael negative lesion. She underwent radiation therapy. Additionally she saw Dr. Foster from medical oncology and was started on Letrazole. She stopped the letrazole as it causes her to have symptoms of crampy leg pain. She has no complaints related to lumps, masses or nodules in her breast at the present time. She had a bilateral mammogram on 04-01-21 which was benign BIRAD 2. Family history: Mother: Breast cancer in her 80s Father: Lymphoma Paternal uncle: Stomach cancer patient: right breast cancer Hormonal history: Menarche: 11 , one miscarriage, press-fit: No, age of first : 14 Menopause: 46 control pills: 2 years Hormones: M is all now Surgical history: 1. IUD removed and had dislocated 2. Lumpectomy and sentinel node biopsy right breast Medical history: 1. Arthritis 2. Hypertension Social history: Smoke: Stopped in August 2018; used to smoke 1 1/2 PPD for 40 years alcohol: 3-4 beers/ twice a week drugs: none Review of systems: Constitutional: Night sweats are resolving HEENT: Negative Breasts: As per HPI Cardiovascular: Hypertension Respiratory: Negative GI: Negative : Negative Menstruation: Postmenopausal Musculoskeletal: Arthritis Integument: Negative Neurologic: Negative Psychiatric: Negative Endocrine: Negative ALLERGIES: Negative Objective - Vital Signs Vital signs: Vital Signs Temp 98.2 F 11/01/21 14:45 Pulse 68 11/01/21 14:45 Resp 13 11/01/21 14:45 BP 148/70 11/01/21 14:45 Pulse Ox 98 11/01/21 14:45 FiO2 Intake & Output 10/31/21 11/01/21 11/01/21 18:59 06:59 18:59 Weight 83.461 kg - Constitutional General appearance: Present: cooperative - EENT Eyes: Present: EOMI - Neck Neck: Present: normal ROM - Respiratory Respiratory: bilateral: CTA - Cardiovascular Heart sounds: normal: S1, S2 - Integumentary Integumentary: Present: normal turgor - Musculoskeletal Musculoskeletal Comment(s): uses a cane - Psychiatric Psychiatric: Present: A&O x's 3, appropriate affect, intact judgment & insight - Additional findings Additional findings: Breast Exam: BRA: 44DD inspection: bilateral grade 3 ptosis; radiation changes and surgical changes right breast palpation: Right breast: Radiation and postsurgical changes, multiple positional exam no dominant masses or nodules of concern Right axilla: No adenopathy of concern Left breast: Multi-positional exam fibrocystic changes no dominant masses or nodules of concern Left axilla: No adenopathy of concern Assessment and Plan Assessment: Impression: Stgae IA right breast cancer no evidence of recurrence Plan: bilateral mammogram and follow up at that time CC: Dr. Feldman
== END | disposition home or self-care (01) ==
LOC: WWCWWP 14:30
PROVIDERS: ATTEND Surgery
DX: Z53.9 Procedure and treatment not carried out, unspecified reason (principal)

== ENCOUNTER → 2022-10-24 | Outpatient (CLI) | payer MEDICARE ==
[2022-10-24 10:05] VITALS: BP 190/92; PULSE 78; RESP 17; TEMP 98.5
--- NOTE | 2022-10-24 10:20 | P.PN ---
Subjective Progress Note Date: 10/24/22 stage IA right breast cancer Angy is a 67 year old white female status post lumpectomy and sentinel node biopsy on . Lymph nodes were negative and margins were clear. This was a T1 N0 M0. ER/[place] positive HER-2/rafael negative lesion. She underwent radiation therapy. Additionally she saw Dr. Foster from medical oncology and was started on Letrazole. She stopped the letrazole as it causes her to have symptoms of crampy leg pain. She has no complaints related to lumps, masses or nodules in her breast at the present time. She had a bilateral mammogram on 04-11-22 which was benign BIRAD 2. Is not complaining of any new lumps masses or nodules of concern in either breast. Family history: Mother: Breast cancer in her 80s Father: Lymphoma Paternal uncle: Stomach cancer patient: right breast cancer Hormonal history: Menarche: 11 , one miscarriage, press-fit: No, age of first : 14 Menopause: 46 control pills: 2 years Hormones: M is all now Surgical history: 1. IUD removed and had dislocated 2. Lumpectomy and sentinel node biopsy right breast Medical history: 1. Arthritis 2. Hypertension Social history: Smoke: Stopped in August 2018; used to smoke 1 1/2 PPD for 40 years alcohol: 3-4 beers/ twice a week drugs: none Review of systems: Constitutional: Night sweats are resolving HEENT: Negative Breasts: As per HPI Cardiovascular: Hypertension Respiratory: Negative GI: Negative : Negative Menstruation: Postmenopausal Musculoskeletal: Arthritis Integument: Negative Neurologic: Negative Psychiatric: Negative Endocrine: Negative ALLERGIES: Negative Objective - Vital Signs Vital signs: Vital Signs Temp 98.5 F 10/24/22 10:02 Pulse 78 10/24/22 10:02 Resp 17 10/24/22 10:02 BP 190/92 10/24/22 10:02 Pulse Ox 98 10/24/22 10:02 FiO2 Intake & Output 10/23/22 10/24/22 10/24/22 18:59 06:59 18:59 Weight 127.006 kg - Constitutional General appearance: Present: cooperative - EENT ENT: Present: hearing grossly normal - Neck Neck: Present: normal ROM - Respiratory Respiratory: bilateral: CTA - Cardiovascular Rhythm: regular Heart sounds: normal: S1, S2 - Integumentary Integumentary: Present: normal turgor - Musculoskeletal Musculoskeletal: Present: gait normal - Psychiatric Psychiatric: Present: A&O x's 3, appropriate affect, intact judgment & insight - Additional findings Additional findings: Breast Exam: BRA: 44DD inspection: bilateral grade 3 ptosis; radiation changes and surgical changes right breast palpation: Right breast: Radiation and postsurgical changes, multiple positional exam no dominant masses or nodules of concern Right axilla: No adenopathy of concern Left breast: Multi-positional exam fibrocystic changes no dominant masses or nodules of concern Left axilla: No adenopathy of concern Assessment and Plan Assessment: Impression: Stgae IA right breast cancer no evidence of recurrence; surgery 06-21-19 Plan: bilateral mammogram and follow up at that time CC: Dr. Feldman
== END ==
LOC: WWCWWP 09:37
PROVIDERS: ATTEND Surgery
DX: I10 Essential (primary) hypertension (principal); M19.90 Unspecified osteoarthritis, unspecified site; Z12.31 Encounter for screening mammogram for malignant neoplasm of breast; Z85.3 Personal history of malignant neoplasm of breast; Z80.3 Family history of malignant neoplasm of breast; Z87.891 Personal history of nicotine dependence; Z92.3 Personal history of irradiation; Z88.0 Allergy status to penicillin

== ENCOUNTER → 2023-04-14 | Outpatient (CLI) | payer MEDICARE ==
--- NOTE | 2023-04-16 10:05 | MM ---
Reason for Exam: Additional evaluation requested from prior study. Last screening mammogram was performed 12 month(s) ago. Patient History: Menarche at age 11. First Full-Term at age 14. Postmenopausal. Breast cancer, right, age 63. 06/22/2019, Lumpectomy on the Right side. 06/22/2019, Malignant Core Biopsy on the right side. 04/28/2019, Malignant Core Biopsy on the right side. 2019, Radiation Therapy on the right side. Mother had breast cancer, age 80. Prior Study Comparison: 10/10/2015 Bilateral Screening Mammogram, [facility]. 03/17/2019 Bilateral Screening Mammogram, [facility]. 03/30/2019 Right Diagnostic Ultrasound, [facility]. 04/28/2019 Right Diagnostic Mammogram, [facility]. 03/27/2020 Bilateral Diagnostic Mammogram, [facility]. 04/01/2021 Bilateral Diagnostic Mammogram, [facility]. 04/11/2022 Bilateral MG 3D diag mammo w/cad PRABHAKAR, [facility]. Tissue Density: There are scattered areas of fibroglandular density. Findings: Analyzed By CAD. Stable post lumpectomy changes are posterior right 12:00 position. Postoperative spiculation is somewhat improved since prior study. No new masses seen within either breast. No suspicious microcalcifications present. Overall Assessment: Benign, BI-RAD 2 Management: Diagnostic Mammogram of both breasts in 1 year. . Results were given to the patient verbally at the time of exam. Patient should continue monthly self-breast exams. A clinical breast exam by your physician is recommended on an annual basis. This exam should not preclude additional follow-up of suspicious palpable abnormalities. Note on Gemini scores and lifetime risk: 1. A Gemini score greater than 3% is considered moderate risk. If this is the case, consider specialist referral to assess eligibility for a risk reducing agent. 2. If overall lifetime risk for the development of breast cancer is 20% or higher, the patient may qualify for future screening with alternating mammogram and breast MRI. Electronically signed and approved by: Brayan Brice M.D. Radiologis
== END | disposition home or self-care (01) ==
LOC: RADMAMWWP 10:44
PROVIDERS: ATTEND Surgery
DX: R92.323 Mammographic fibroglandular density, bilateral breasts (principal); Z85.3 Personal history of malignant neoplasm of breast; Z80.3 Family history of malignant neoplasm of breast; Z78.0 Asymptomatic menopausal state; Z98.890 Other specified postprocedural states
CPT/HCPCS: 77066; G0279; 77062

== ENCOUNTER → 2023-05-01 | Outpatient (CLI) | payer MEDICARE | END | disposition home or self-care (01) | LOC: WWCWWP 10:58 | PROVIDERS: ATTEND Surgery | DX: Z53.21 Procedure and treatment not carried out due to patient leaving prior to being seen by health care provider (principal) ==

== ENCOUNTER → 2023-10-22 | Outpatient (CLI) | payer MEDICARE ==
[2023-10-22 12:22] VITALS: PULSE 91; RESP 17; TEMP 98.2
--- NOTE | 2023-10-22 12:25 | P.PN ---
Subjective Progress Note Date: 10/22/23 Principal diagnosis: stage I right breast cancer 2019, [id number]- stage IA right breast cancer Angy is a 68 year old white female status post lumpectomy and sentinel node biopsy on . Lymph nodes were negative and margins were clear. This was a T1 N0 M0. [place] positive HER-2/rafael negative lesion. She underwent radiation therapy. Additionally she saw Dr. Foster from medical oncology and was started on Letrazole. She stopped the letrazole as it causes her to have symptoms of crampy leg pain. She has no complaints related to lumps, masses or nodules in her breast at the present time. She had a bilateral mammogram on 04-14-23 which was benign BIRAD 2. Is not complaining of any new lumps masses or nodules of concern in either breast. She is using a cane and has surgery scheduled for 2023, vein stripping Family history: Mother: Breast cancer in her 80s Father: Lymphoma Paternal uncle: Stomach cancer patient: right breast cancer Hormonal history: Menarche: 11 , one miscarriage, press-fit: No, age of first : 14 Menopause: 46 control pills: 2 years Hormones: M is all now Surgical history: 1. IUD removed and had dislocated 2. Lumpectomy and sentinel node biopsy right breast Medical history: 1. Arthritis 2. Hypertension Social history: Smoke: Stopped in August 2018; used to smoke 1 1/2 PPD for 40 years alcohol: 3-4 beers/ twice a week drugs: none Review of systems: Constitutional: Night sweats are resolving HEENT: Negative Breasts: As per HPI Cardiovascular: Hypertension Respiratory: Negative GI: Negative : Negative Menstruation: Postmenopausal Musculoskeletal: Arthritis Integument: Negative Neurologic: Negative Psychiatric: Negative Endocrine: Negative ALLERGIES: Negative Objective - Constitutional General appearance: Present: cooperative - EENT ENT: Present: hearing grossly normal - Neck Neck: Present: normal ROM - Respiratory Respiratory: bilateral: CTA - Cardiovascular Rhythm: regular Heart sounds: normal: S1, S2 - Integumentary Integumentary: Present: normal turgor - Musculoskeletal Musculoskeletal Comment(s): uses a cane - Psychiatric Psychiatric: Present: A&O x's 3, appropriate affect, intact judgment & insight - Additional findings Additional findings: Breast Exam: BRA: 44DD inspection: bilateral grade 3 ptosis; radiation changes and surgical changes right breast palpation: Right breast: Radiation and postsurgical changes, multiple positional exam no dominant masses or nodules of concern Right axilla: No adenopathy of concern Left breast: Multi-positional exam fibrocystic changes no dominant masses or nodules of concern Left axilla: No adenopathy of concern Assessment and Plan Assessment: Impression: Stage IA right breast cancer no evidence of recurrence; surgery 06-21-19 Bilageral mammogram on 04-14-23 personally reviewed and interpreted BIRAD 2 Plan: bilateral mammogram April 2024 with appointment at that time follow up sooner any concerns CC: Mary Feldman
== END ==
LOC: WWCWWP 12:04
PROVIDERS: ATTEND Surgery
DX: R92.8 Other abnormal and inconclusive findings on diagnostic imaging of breast (principal); C50.911 Malignant neoplasm of unspecified site of right female breast; Z80.3 Family history of malignant neoplasm of breast; Z17.0 Estrogen receptor positive status [ER+]; Z87.891 Personal history of nicotine dependence; Z92.3 Personal history of irradiation; Z88.0 Allergy status to penicillin

== ENCOUNTER → 2024-04-14 | Outpatient (CLI) | payer MEDICARE ==
--- NOTE | 2024-04-14 13:51 | MM ---
Reason for Exam: Hx of breast cancer, conservation therapy. Last screening mammogram was performed 12 month(s) ago. Patient History: Menarche at age 11. First Full-Term at age 14. Postmenopausal. Breast cancer, right, age 63. 06/22/2019, Lumpectomy on the Right side. 06/22/2019, Malignant Core Biopsy on the right side. 04/28/2019, Malignant Core Biopsy on the right side. 2019, Radiation Therapy on the right side. Mother had breast cancer, age 80. Tissue Density: There are scattered areas of fibroglandular density. Findings: Analyzed By CAD. Postsurgical and posttreatment changes right breast. A few small grouped punctate calcifications on both sides remain unchanged. No significant change from prior exams. Overall Assessment: Benign, BI-RAD 2 Management: Screening Mammogram of both breasts in 1 year. Results were given to the patient verbally at the time of exam. Patient should continue monthly self-breast exams. A clinical breast exam by your physician is recommended on an annual basis. This exam should not preclude additional follow-up of suspicious palpable abnormalities. Note on Gemini scores and lifetime risk: 1. A Gemini score greater than 3% is considered moderate risk. If this is the case, consider specialist referral to assess eligibility for a risk reducing agent. 2. If overall lifetime risk for the development of breast cancer is 20% or higher, the patient may qualify for future screening with alternating mammogram and breast MRI. [facility], , 04/14/2024 1:49 PM. Electronically signed and approved by: Marin Méndez M.D. Radiologist
== END | disposition home or self-care (01) ==
LOC: RADMAMWWP 13:04
PROVIDERS: ATTEND Surgery
DX: R92.323 Mammographic fibroglandular density, bilateral breasts (principal); Z78.0 Asymptomatic menopausal state; Z85.3 Personal history of malignant neoplasm of breast
CPT/HCPCS: 77062; 77066

== ENCOUNTER → 2024-04-21 | Outpatient (CLI) | payer MEDICARE ==
[2024-04-21 11:53] VITALS: BP 198/80; PULSE 69; RESP 18; TEMP 98.4
--- NOTE | 2024-04-21 12:06 | P.PN ---
Subjective Progress Note Date: 04/21/24 Principal diagnosis: stage I right breast cancer 2019, [id number]+Her2- 04-21-24 Principal diagnosis: stage I right breast cancer 2019, [id number]+Her2- Angy is a 68 year old white female status post lumpectomy and sentinel node biopsy on . Lymph nodes were negative and margins were clear. This was a T1 N0 M0. ER/[place] positive HER-2/rafael negative lesion. She underwent radiation therapy. Additionally she saw Dr. Foster from medical oncology and was started on Letrazole. She stopped the letrazole as it causes her to have symptoms of crampy leg pain. She has no complaints related to lumps, masses or nodules in her breast at the present time. She had a bilateral mammogram on 04-14-24 which was benign BIRAD 2. Is not complaining of any new lumps masses or nodules of concern in either breast. She is using a cane and has surgery on 2023, vein stripping on the right leg did well with that Family history: Mother: Breast cancer in her 80s Father: Lymphoma Paternal uncle: Stomach cancer patient: right breast cancer Hormonal history: Menarche: 11 , one miscarriage, press-fit: No, age of first : 14 Menopause: 46 control pills: 2 years Hormones: M is all now Surgical history: 1. IUD removed and had dislocated 2. Lumpectomy and sentinel node biopsy right breast Medical history: 1. Arthritis 2. Hypertension Social history: Smoke: Stopped in August 2018; used to smoke 1 1/2 PPD for 40 years alcohol: 3-4 beers/ twice a week drugs: none Review of systems: Constitutional: Night sweats are resolving HEENT: Negative Breasts: As per HPI Cardiovascular: Hypertension Respiratory: Negative GI: Negative : Negative Menstruation: Postmenopausal Musculoskeletal: Arthritis Integument: Negative Neurologic: Negative Psychiatric: Negative Endocrine: Negative ALLERGIES: Negative Objective - Vital Signs Vital signs: Vital Signs Temp 98.4 F 04/21/24 11:51 Pulse 69 04/21/24 11:51 Resp 18 04/21/24 11:51 BP 198/80 04/21/24 11:51 Pulse Ox 99 04/21/24 11:51 FiO2 Intake & Output 04/20/24 04/21/2404/21/25 18:59 06:59 18:59 Weight 95.254 kg - Constitutional General appearance: Present: cooperative - EENT Eyes: Present: EOMI ENT: Present: hearing grossly normal - Neck Neck: Present: normal ROM - Respiratory Respiratory: bilateral: rales - Cardiovascular Rhythm: regular Heart sounds: normal: S1, S2 - Integumentary Integumentary: Present: normal turgor - Musculoskeletal Musculoskeletal: Present: gait normal - Psychiatric Psychiatric: Present: A&O x's 3, appropriate affect, intact judgment & insight - Additional findings Additional findings: Breast Exam: BRA: 44DD inspection: bilateral grade 3 ptosis; radiation changes and surgical changes right breast palpation: Right breast: Radiation and postsurgical changes, multi positional exam no dominant masses or nodules of concern Right axilla: No adenopathy of concern Left breast: Multi-positional exam fibrocystic changes no dominant masses or nodules of concern Left axilla: No adenopathy of concern Assessment and Plan Assessment: Impression: Stage IA right breast cancer no evidence of recurrence; surgery 06-21-19 Bilateral mammogram on 04-14-24 personally reviewed and interpreted BIRAD 2 Plan: bilateral mammogram April 2025 with appointment at that time follow up sooner any concerns CC: Mary Feldman
== END ==
LOC: WWCWWP 09:51
PROVIDERS: ATTEND Surgery
DX: C50.911 Malignant neoplasm of unspecified site of right female breast (principal); I10 Essential (primary) hypertension; Z80.3 Family history of malignant neoplasm of breast; Z87.891 Personal history of nicotine dependence; Z88.0 Allergy status to penicillin

== ENCOUNTER 2024-06-20 11:57 | Day surgery (SDC) | payer MEDICARE ==
[2024-06-17 14:30] VITALS: BMI 40.3
[2024-06-20] MEDS: IV FLUID CONTINUATION 1,000 ML IV ONE ×3 (10:27→14:29)
[~2024-06-20 11:57] MED LIST changes: -DEXAMETHASONE SOD PHOSPHATE 10 MG/ML 1 ML VIAL IV ONE; -HEPARIN SODIUM,PORCINE 5,000 UNIT/ML 1 ML VIAL SQ ONE; -HYDROmorphone 0.5 MG/0.5 ML SYRINGE IVP PRN; -ONDANSETRON 4 MG/2 ML VIAL IVP ONE; -Pre Op ABX Message 1 EACH MISC MISCELLANE ONE; -SCOPOLAMINE 1.5MG/72HR PATCH TRANSDERM ONE
[2024-06-20 12:41] VITALS: TEMP 97.8
[2024-06-20] MEDS ORDERED: PROPOFOL 10 MG/ML 20 ML VIAL IV ONE (14:32)
[2024-06-20] MEDS ORDERED: LIDOCAINE 1% INJ 10MG/ML (20 ML MDV) ONE (14:32)
--- NOTE | 2024-06-20 14:43 | P.OP ---
Date of Procedure: 06/20/24 Preoperative Diagnosis: Gerd Postoperative Diagnosis: Antral gastritis Small sliding hiatal hernia Procedure(s) Performed: EGD Anesthesia: MAC Surgeon: Gil Roberson Pathology: other (Antrum) Condition: stable Disposition: PACU Description of Procedure: The patient was placed on the endoscopy table in the lateral position. She received IV sedation. The Gastroflux oropharynx passed in the esophagus and the stomach. Scope was placed through the pylorus. The 1st and 2nd portion of the duodenum appeared normal. Scope was then brought back to the antrum this appeared mildly inflamed. A biopsy performed. The scope was then retroflexed and the remainder of the stomach appeared normal. There was a small sliding hiatal hernia. The GE junction was at 38 cm. The distal esophagus appeared normal. Esophagus appeared normal. Scope withdrawn to the patient.
[2024-06-20 15:09] VITALS: BP 172/80; PULSE 67; RESP 20
== END 2024-06-20 15:46 | disposition home or self-care (01) ==
LOC: ORWHC2ENDO 11:57
PROVIDERS: ATTEND Surgery
DX: K29.50 Unspecified chronic gastritis without bleeding (principal); K44.9 Diaphragmatic hernia without obstruction or gangrene; K21.9 Gastro-esophageal reflux disease without esophagitis
CPT/HCPCS: 88305; 43239; J2003; J2704

== ENCOUNTER → 2024-06-27 | Outpatient (CLI) | payer MEDICARE ==
--- NOTE | 2024-06-27 09:52 | NM ---
EXAMINATION TYPE: NM hepatobiliary w CCK DATE OF EXAM: 06/27/2024 COMPARISON: NONE CLINICAL INDICATION: Female, 68 years old with history of GENERALIZED ABDOMINAL PAIN R10.84; epigastr ic pain and heartburn-like symptoms. TECHNIQUE: After the intravenous administration of 5.1 mCi Tc 99m Mebrofenin hepatobiliary scintigrap hy is performed. Immediate images post injection. FINDINGS: There is satisfactory initial accumulation of tracer by the liver. The gallbladder is visualized wit hin 10 minutes. The small bowel activity is not well seen after 60 minutes. At one hour CCK was adm inistered, patient was injected with 2.2 mcg of Kinevac, and gallbladder ejection fraction is calcula cheryle at 78 %, not diminished from the normal range. Therefore there is no scintigraphic evidence of c ystic or common bile duct obstruction to suggest acute cholecystitis or gallbladder hypokinesia. IMPRESSION: As above [facility], , 06/27/2024 9:49 AM
== END | disposition home or self-care (01) ==
LOC: RADNMMAIN 06:40
PROVIDERS: ATTEND Surgery
DX: R10.84 Generalized abdominal pain (principal); R12 Heartburn
CPT/HCPCS: 78227; A9537; J2805